=== PATIENT | male | born 2000 | race Caucasian/White ===

== ENCOUNTER 2024-05-01 08:20 | Emergency (ER) | payer OTHER ==
[~2024-05-01] VITALS: Ht 193 cm; Wt 120.2 kg
[2024-05-01] MEDS ORDERED: XARELTO20 MG PO (08:44)
== END 2024-05-01 09:21 | disposition home or self-care (01) ==
LOC: EDBD 08:20 → ER 08:20
DX: S61.217A Laceration without foreign body of left little finger without damage to nail, initial encounter (principal); F17.210 Nicotine dependence, cigarettes, uncomplicated; W45.8XXA Other foreign body or object entering through skin, initial encounter; Z79.899 Other long term (current) drug therapy
CPT/HCPCS: 73140; 99283-25